=== PATIENT | male | born 1990 | race Hispanic/Latino ===

== ENCOUNTER 2017-02-05 09:35 | Emergency (ER) | payer BC ==
[2017-02-05 09:35] VITALS: BMI 33.5
[2017-02-05 09:59] VITALS: BP 136/67; PULSE 71; RESP 18; TEMP 98; O2SAT 98
[2017-02-05] MEDS ORDERED: Sodium Chloride 0.9% 1,000 ML IV STA (10:05)
[2017-02-05 10:26] LABS: ADD MANUAL DIFF? NO
[2017-02-05 10:33] LABS: BASO # 0.05 K/mm3 (0.0-2.0); BASO % 1.1 % (0.0-3.0); EOS # 0.1 (0.0-0.7); EOS % 1.7 % (1.5-5.0); GRAN % 45.7 % (50.0-68.0); HEMATOCRIT 44.5 % (42.0-52.0); LYMPH # 1.8 (1.2-3.4); LYMPH % 38.5 % (22.0-35.0); MEAN CELL VOLUME 88.5 fL (80.0-105.0); MEAN CORPUSCULAR HGB CONC 36.2 g/dl (31.0-37.0); MEAN PLATELET VOLUME 9.8 fl (7.0-11.0); MONO # 0.6 (0.1-0.6); PLATELET COUNT 116 10^3/uL (120.0-450.0); RED CELL DISTRIBUTION WIDTH 12.6 % (11.5-14.5); URINE BILIRUBIN NEGATIVE (NEGATIVE); URINE BLOOD TRACE-INTACT (NEGATIVE); URINE GLUCOSE (UA) NEGATIVE (NEGATIVE); URINE KETONE NEGATIVE (NEGATIVE); URINE LEUKOCYTE ESTERASE NEGATIVE Leu/uL (NEGATIVE); URINE PROTEIN 30 mg/dL (<30 mg/dL); URINE UROBILINOGEN 0.2 E.U./dL (<1 E.U./dL); WHITE BLOOD COUNT 4.6 10^3/ul (4.5-11.0)
[2017-02-05 10:34] LABS: URINE APPEARANCE CLEAR (CLEAR); URINE COLOR YELLOW (YELLOW)
--- NOTE | 2017-02-05 10:35 | ED PDOC ---
Arrival/HPI - General Historian: Patient <Mani Chavez A - Last Filed: 02/05/17 13:43> <Bob Hay - Last Filed: 02/05/17 18:46> - General Chief Complaint: GI Problem Time Seen by Provider: 02/05/17 09:37 - History of Present Illness Narrative History of Present Illness (Text): 02/05/17 10:28 26yo male with no PMHx present with complaint of diarrhea x 4daysa. States diarrhea started after eating [place] at a Restaurant. States he gets diarrhea whenever he eats food with associated pain and "grumbling sound". States he feels dehydrated. denies any current abdominal pain. Denies nausea, vomiting, fever, chills, hematemesis, hematochezia, melena, any other complaint. (Mani Chavez A) Past Medical History - Provider Review Nursing Documentation Reviewed: Yes - Infectious Disease Hx of Infectious Diseases: None - Psychiatric Hx Depression: No Hx Emotional Abuse: No Hx Physical Abuse: No Hx Substance Use: No - Surgical History Other/Comment: Anal Fistula Surgery - Suicidal Assessment Feels Threatened In Home Enviroment: No <Mani Chavez A - Last Filed: 02/05/17 13:43> Family/Social History - Physician Review Nursing Documentation Reviewed: Yes Family/Social History: Unknown Family HX Smoking Status: Never Smoked Hx Alcohol Use: No (social) Hx Substance Use: No Hx Substance Use Treatment: No <Mani Chavez A - Last Filed: 02/05/17 13:43> Allergies/Home Meds <Mani Chavez A - Last Filed: 02/05/17 13:43> <Bob Hay - Last Filed: 02/05/17 18:46> Allergies/Adverse Reactions: Allergies No Known Allergies Allergy (Verified 02/05/17 09:48) Review of Systems - Physician Review All systems were reviewed & negative as marked: Yes - Review of Systems Constitutional: Normal Eyes: Normal ENT: Normal Respiratory: Normal Cardiovascular: Normal Gastrointestinal: Diarrhea. absent: Abdominal Pain, Constipation, Nausea, Vomiting, Hematochezia, Hematemesis Genitourinary Male: Normal Musculoskeletal: Normal Skin: Normal Neurological: Normal Endocrine: Normal Hemo/Lymphatic: Normal Psychiatric: Normal <Mani Chavez A - Last Filed: 02/05/17 13:43> Physical Exam Vital Signs Reviewed: Yes Temperature: Afebrile Blood Pressure: Normal Pulse: Regular Respiratory Rate: Normal Appearance: Positive for: Well-Appearing, Non-Toxic, Comfortable Pain Distress: None Mental Status: Positive for: Alert and Oriented X 3 - Systems Exam Head: Present: Atraumatic, Normocephalic Pupils: Present: PERRL Extroacular Muscles: Present: EOMI Conjunctiva: Present: Normal Mouth: Present: Moist Mucous Membranes Neck: Present: Normal Range of Motion Respiratory/Chest: Present: Clear to Auscultation, Good Air Exchange. No: Respiratory Distress, Accessory Muscle Use Cardiovascular: Present: Regular Rate and Rhythm, Normal S1, S2. No: Murmurs Abdomen: Present: Normal Bowel Sounds. No: Tenderness, Distention, Peritoneal Signs, Rebound, Guarding, McBurney's Point Tender, Rovsing's Sign Present Back: Present: Normal Inspection Upper Extremity: Present: Normal Inspection. No: Cyanosis, Edema Lower Extremity: Present: Normal Inspection. No: Edema Neurological: Present: GCS=15, CN II-XII Intact, Speech Normal Skin: Present: Warm, Dry, Normal Color. No: Rashes Psychiatric: Present: Alert, Oriented x 3, Normal Insight, Normal Concentration <Diru,Happiness A - Last Filed: 02/05/17 13:43> Vital Signs Temp Pulse Resp BP Pulse Ox 02/05/17 09:42 98 F 71 18 136/67 98 Medical Decision Making <Diru,Happiness A - Last Filed: 02/05/17 13:43> <Bob Hay - Last Filed: 02/05/17 18:46> ED Course and Treatment: 02/05/17 13:43 Pt presented for stated history. He was hemodynamically stable in ED. His abdominal exam was benign. Lab was unremarkable. He was given Loperamide in ED. Stool culture is pending. Result was DW the pt. He was DC home with Ari and referred to his PMD. Advised to f/u with MR in 2days for his result. Otherwise TRT ED for worsening or new symptoms. (Diru,Happiness A) 02/05/17 18:42 Mother present at bedside. On exam, very MILD left sided pain with no rebound or guarding. Tolerating po. Appears well hydrated. Stool cx obtained. I discussed need for close follow-up with his PMD Dr. Mcrae, stressed that if pain returned or worsened to return for re-evaluation, although as very minimal discomfort, left sided, exam and hx currently not consistent with appendicitis or cholecysitis. Cannot exclude colitis based on hx but afebrile, no bloody stool, no hx of IBD in family, no prior abdominal surgeries. Culture follow-up reviewed with patient and family. He is afebrile nontoxic appearing, cv stable does not show signs of sepsis or fever on exam. Limitations of labs reviewed with patient, although as no significant pain currently and reliable will d/c with follow-up and close instructions for follow-up. (Bob Hay) - Lab Interpretations Lab Results: 02/05/17 10:25 02/05/17 10:25 Lab Results 02/05/17 10:25: WBC 4.6, RBC 5.03, Hgb 16.1, Hct 44.5, MCV 88.5, MCH 32.0, MCHC 36.2, RDW 12.6, Plt Count 116 L, MPV 9.8, Gran % 45.7 L, Lymph % (Auto) 38.5 H, [place] % (Auto) 13.0 H, Eos % (Auto) 1.7, Baso % (Auto) 1.1, Gran # 2.10, Lymph # 1.8, [place] # 0.6, Eos # 0.1, Baso # 0.05, PT 12.2 H, INR 1.13 H, APTT 30.0, Sodium 141, Potassium 4.3, Chloride 103, Carbon Dioxide 28, Anion Gap 14, BUN 15 , Creatinine 1.0, Est GFR ( Amer) > 60, Est GFR (Non-Af Amer) > 60, Random Glucose 78, Calcium 8.6, Total Bilirubin 1.3, AST 25, ALT 37, Alkaline Phosphatase 50, Total Protein 7.0, Albumin 3.9, Globulin 3.1, Albumin/Globulin Ratio 1.3, Lipase 65, Urine Color Yellow, Urine Appearance Clear, Urine pH 6.0, Ur Specific [place] >= 1.030, Urine Protein 30 H, Urine Glucose (UA) Negative, Urine Ketones Negative, Urine Blood Trace-intact H, Urine Nitrate Negative, Urine Bilirubin Negative, Urine Urobilinogen 0.2, Ur Leukocyte Esterase Negative , Urine RBC 0 - 2, Urine WBC 0 - 2, Ur Epithelial Cells 0 - 2, Urine Bacteria Small - Medication Orders Current Medication Orders: Discontinued Medications Famotidine (Pepcid) 20 mg IVP STAT STA Stop: 02/05/17 10:06 Last Admin: 02/05/17 10:21 Dose: 20 MG IVP Administration Document 02/05/17 10:21 SE (Rec: 02/05/17 10:21 [id number]) Charges for Administration # of IVP Administrations 1 Sodium Chloride (Sodium Chloride 0.9%) 1,000 mls @ 1,000 mls/hr IV .Q1H STA Stop: 02/05/17 11:04 Last Admin: 02/05/17 10:20 Dose: 1,000 MLS/HR eMAR Start Stop Document 02/05/17 10:20 SE (Rec: 02/05/17 10:21 SE [id number]) Intravenous Solution Start Date 02/05/17 Start Time 10:21 Loperamide HCl (Imodium) 4 mg PO ONCE STA Stop: 02/05/17 11:32 Last Admin: 02/05/17 11:37 Dose: 4 MG - PA / [employer]ER / Resident Statement / has reviewed & agrees with the documentation as recorded. / has examined the patient and agrees with the treatment plan. <Bob Hay - Last Filed: 02/05/17 18:46> Disposition/Present on Arrival - Present on Arrival Any Indicators Present on Arrival: No History of DVT/PE: No History of Uncontrolled Diabetes: No Urinary Catheter: No History of Decub. Ulcer: No History Surgical Site Infection Following: None - Disposition Have Diagnosis and Disposition been Completed?: Yes Disposition Time: 12:00 Patient Plan: Discharge <Mani Chavez - Last Filed: 02/05/17 13:43> <Bob Hay - Last Filed: 02/05/17 18:46> - Disposition Diagnosis: Diarrhea, Abdominal pain Disposition: HOME/ ROUTINE Condition: STABLE Discharge Instructions (ExitCare): Acute Diarrhea (ED) Additional Instructions: Follow up with your Doctor Return to ED for any new or worsening symptoms Prescriptions: Dicyclomine [Bentyl] 20 mg PO BID #10 tab Referrals: Jose A Mcrae MD [Family Provider] - Follow up with primary Forms: WORK NOTE
[2017-02-05 10:39] LABS: INR 1.13 (0.93-1.08)
[2017-02-05 10:40] LABS: ALB/GLOB RATIO 1.3 (1.1-1.8); ALKALINE PHOSPHATASE 50 U/L (38-133); ALT/SGPT 37 U/L (7-56); AST/SGOT 25 U/L (15-59); BILIRUBIN,TOTAL 1.3 mg/dL (0.2-1.3); BLOOD UREA NITROGEN 15 mg/dL (7-21); CALCIUM 8.6 mg/dL (8.4-10.5); CARBON DIOXIDE 28 mmol/L (21-33); CHLORIDE 103 mmol/L (98-107); GFR AFRICAN-AMERICAN > 60; GLUCOSE,RANDOM 78 mg/dL (70-110); LIPASE 65 U/L (23-300); POTASSIUM 4.3 mmol/L (3.6-5.0); SODIUM 141 mmol/L (132-148)
[2017-02-05 10:42] LABS: URINE BACTERIA SMALL (NEG); URINE EPITHELIAL CELLS 0 - 2 /hpf (0-5); URINE RBC 0 - 2 /hpf (0-2); URINE WBC 0 - 2 /hpf (0-6)
== END 2017-02-05 12:17 | disposition home or self-care (01) ==
LOC: ED 09:35
DX: R19.7 Diarrhea, unspecified (principal); R10.9 Unspecified abdominal pain
CPT/HCPCS: 80053; 81001; 83690; 85025; 85610; 85730; 87045; 87324; 96374; 99284; J7040